=== PATIENT | female | born 1960 | race Caucasian/White ===

== ENCOUNTER → 2018-06-17 12:33 | Outpatient (CLI) | payer OTHER, MEDICAID, SELFPAY ==
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
== END ==
PROVIDERS: Visit Provider Family Medicine
DX: R10.11 Right upper quadrant pain (principal)
CPT/HCPCS: 76700

== ENCOUNTER → 2018-07-18 13:25 | Outpatient (CLI) | payer OTHER, SELFPAY ==
[2018-07-18 14:19] LABS: Add Manual Diff / Slide Review NO; Basophils Percent Auto 2.5 % (0-2); Eosinophils Percent Auto 5.3 % (2-4); Hematocrit 39.3 % (36-46); Hemoglobin 13.1 g/dL (12.0-16.0); Lymphocytes Percent Auto 27.2 % (25-40); Mean Corpuscular HGB Conc 33.3 % (30-36); Mean Corpuscular Hemoglobin 31.3 PG (26-34); Mean Corpuscular Volume 93.9 fL (80-100); Monocytes Percent Auto 6.7 % (3-14); Neutrophils Absolute Auto 3500 /uL (1500-7000); Neutrophils Percent Auto 58.3 % (50-75); Platelet Count 272 X10^3/uL (150-400); Red Blood Cell Count 4.18 X10^6/uL (4.0-5.2); Red Cell Distribution Width 13.9 % (11.6-14.8)
[2018-07-18 14:36] LABS: Alanine Aminotransferase 20 IU/L (9-52); Albumin 4.5 g/dL (3.5-5.0); Albumin Globulin Ratio 1.6 (1.0-2.8); Alkaline Phosphatase 72 U/L (38-126); Aspartate Aminotransferase 30 IU/L (14-36); BUN Creatinine Ratio 14.3 (6-22); Bilirubin Total 0.5 mg/dL (0.2-1.3); Blood Urea Nitrogen 10 mg/dL (7-17); Calcium 9.4 mg/dL (8.4-10.2); Carbon Dioxide 28 mmol/L (22-32); Chloride 104 mmol/L (98-107); Estimated Glomerular Filt Rate > 60.0 mL/min (>60); Globulin 2.8 g/dL (1.7-4.1); Glucose 100 mg/dL (70-100); HEMOLYSIS < 15 (0-50); Potassium 4.4 mmol/L (3.4-5.1); Sodium 141 mmol/L (137-145); Total Protein 7.3 g/dL (6.3-8.2)
== END ==
PROVIDERS: Visit Provider Orthopaedic Surgery
DX: M77.11 Lateral epicondylitis, right elbow (principal); S53.441A Ulnar collateral ligament sprain of right elbow, initial encounter
CPT/HCPCS: 36415; 80053; 85025; 86704; 86803; 93005

== ENCOUNTER 2019-03-19 22:43 | Emergency (ER) | payer OTHER, MEDICAID, SELFPAY ==
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
[2019-03-19 22:51] VITALS: BP 143/92; PULSE 78; RESP 16; TEMP 36.4; O2SAT 97
[2019-03-19] MEDS: KETOROLAC 60 MG/2 ML VIAL IM (23:09)
[2019-03-20 00:29] VITALS: BP 139/88; PULSE 80; RESP 18; O2SAT 98
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
[2019-03-20 01:38] VITALS: BP 130/80; PULSE 76; RESP 18; O2SAT 99
== END 2019-03-20 01:39 | disposition home or self-care (01) ==
PROVIDERS: Emergency Provider Emergency Medicine
DX: S16.1XXA Strain of muscle, fascia and tendon at neck level, initial encounter (principal); R51 Headache; V49.49XA Driver injured in collision with other motor vehicles in traffic accident, initial encounter
CPT/HCPCS: 70450; 72125; 96372; 99282; 99283; J1885